=== PATIENT | female | born 1975 | race Caucasian/White ===

== ENCOUNTER → 2018-10-15 11:07 | Emergency (ER) | payer OTHER ==
[~2018-10-15] VITALS: Ht 162.6 cm; Wt 59.0 kg
[~2018-10-15 11:07] MED LIST: ALBU90OI6 INH; AZIT250 PO; Bactrim Ds Tab1 EACH PO; CEPH500 PO; CYCL10 PO; DEXGUASY PO; HYDACE5 PO; LORA.5 PO; LORA1; NAPR500 PO; NITR100; OXYACE5T PO; PRED10 PO; PRENZ PO; PROM25 PO; RXLORA1 PO; STOMUL; SULF10OPSA OD; SULTRIDS PO; TRAM50 PO
== END | disposition home or self-care (01) ==
LOC: ER 11:07
DX: L03.011 Cellulitis of right finger (principal); L08.9 Local infection of the skin and subcutaneous tissue, unspecified; Z88.0 Allergy status to penicillin; Z79.899 Other long term (current) drug therapy; F17.200 Nicotine dependence, unspecified, uncomplicated
CPT/HCPCS: 10160; 99283-25

== ENCOUNTER 2020-02-26 17:58 | Emergency (ER) | payer OTHER ==
[~2020-02-26] VITALS: Ht 165.1 cm; Wt 62.6 kg
[2020-02-26] MEDS ORDERED: FAMO20 PO (19:17)
[2020-02-26] MEDS ORDERED: PRED20 PO (19:17)
[2020-02-26] MEDS ORDERED: EPIPEN0.3 MG/0.3 IJ (19:30)
== END 2020-02-26 19:33 | disposition home or self-care (01) ==
LOC: ER 17:58
DX: T63.441A Toxic effect of venom of bees, accidental (unintentional), initial encounter (principal); L53.0 Toxic erythema; F17.200 Nicotine dependence, unspecified, uncomplicated; Z88.0 Allergy status to penicillin
CPT/HCPCS: 96372; 99283-25; J2930

== ENCOUNTER 2021-06-02 09:02 | Emergency (ER) | payer OTHER ==
[~2021-06-02] VITALS: Ht 162.6 cm; Wt 56.2 kg
[~2021-06-02 09:02] MED LIST changes: +EPIPEN0.3 MG/0.3 IJ; +FAMO20 PO; +PRED20 PO
== END 2021-06-02 10:45 | disposition left against medical advice (07) ==
LOC: ER 09:02
DX: R68.84 Jaw pain (principal); F17.200 Nicotine dependence, unspecified, uncomplicated; G89.29 Other chronic pain; Z53.20 Procedure and treatment not carried out because of patient's decision for unspecified reasons; Z88.0 Allergy status to penicillin; Z85.118 Personal history of other malignant neoplasm of bronchus and lung
CPT/HCPCS: 99282; A9270; J1885

== ENCOUNTER → 2021-06-03 | Outpatient (CLI) | payer OTHER ==
[2021-06-03 11:07] LABS: BASOPHILS ABSOLUTE AUTO 0.05 K/mm3 (0.00-0.23); BASOPHILS PERCENT AUTO 1 % (0-2); EOSINOPHILS ABSOLUTE AUTO 0.12 K/mm3 (0.00-0.68); EOSINOPHILS PERCENT AUTO 1 % (0-6); Hematocrit 40.9 % (33.0-51.0); Hemoglobin 13.8 g/dL (11.5-16.0); IMMATURE GRAN ABSOLUTE AUTO 0.03 K/mm3 (0.00-0.10); IMMATURE GRAN PERCENT AUTO 0 % (0-1); LYMPHOCYTES ABSOLUTE AUTO 1.99 K/mm3 (0.84-5.20); LYMPHOCYTES PERCENT AUTO 19 % (21-46); MONOCYTES ABSOLUTE AUTO 0.39 K/mm3 (0.16-1.47); MONOCYTES PERCENT AUTO 4 % (4-13); Mean Corpuscular HGB 31.2 pg (26.0-34.0); Mean Corpuscular HGB Conc 33.7 g/dL (31.5-36.5); Mean Corpuscular Volume 93 fL (80-100); Mean Platelet Volume 8.9 fL (9.1-12.4); NEUTROPHILS ABSOLUTE AUTO 7.75 K/mm3 (1.96-9.15); NEUTROPHILS PERCENT AUTO 75 % (41-73); Platelet Count 290 K/mm3 (150-400); RDW Coefficient Variation 13.4 % (11.7-14.2); RDW Standard Deviation 45.7 fL (35.1-46.3); Red Blood Cell Count 4.42 M/mm3 (3.80-5.20); White Blood Cell Count 10.33 K/mm3 (4.00-11.30)
[2021-06-03 11:10] LABS: Anion Gap 8 mmol/L (6-16); Blood Urea Nitrogen 10 mg/dL (8-24); Bun/Creatinine Ratio 15.6 (12.0-20.0); CO2, Blood 27 mmol/L (21-32); Calcium, Blood 8.6 mg/dL (8.5-10.1); Chloride, Blood 102 mmol/L (98-108); Creatinine, Blood 0.64 mg/dL (0.40-1.00); Glomerular Filtration Rate >60 (60-); Glucose, Blood 101 mg/dL (70-99); Potassium, Blood 4.4 mmol/L (3.5-5.5); Sodium, Blood 137 mmol/L (136-145)
== END ==
LOC: LAB SHORT 11:02 → LAB 11:02
PROVIDERS: Physician Assistant
DX: I95.9 Hypotension, unspecified (principal)
CPT/HCPCS: 80048; 85025